=== PATIENT | male | born 1940 | race Caucasian/White ===

== ENCOUNTER 2016-09-01 15:40 | Inpatient (IN) | payer MEDICARE, OTHER ==
[~2016-09-01] VITALS: Ht 193 cm; Wt 66.7 kg
[2016-09-21] VITALS (10 sets, daily range): BP systolic 102–115; BP diastolic 60–73; PULSE 68–92; TEMP 97.6–98.5
[2016-09-21] MEDS ORDERED: LIPITOR 40MG TA40 MG PO (10:15)
[2016-09-21] MEDS ORDERED: PRINIVIL40 MG PO (10:16)
[2016-09-21] MEDS ORDERED: PERCOCET 325 MG1 TA2 PO (10:16)
[2016-09-21] MEDS ORDERED: NEXIUM 40MG40 MG PO (10:17)
[2016-09-21] MEDS ORDERED: ALKA-SELTZER GO1 TE1 PO (10:18)
[2016-09-21] MEDS ORDERED: BETAMETHASONE D15 G1 TP (10:19)
[2016-09-21] MEDS ORDERED: XANAX 0.5MG0.5 MG PO (10:19)
[2016-09-21 15:27] LABS: BASO % 0.3 % (0.0-2.0); EOS # 0.1 (0.0-0.7); EOS % 1.1 % (0-4.0); GRAN % 83.3 % (42.2-75.2); HEMATOCRIT 42.2 % (42.0-52.0); HEMOGLOBIN 13.8 g/dl (13.5-18.0); LYMPH # 1.4 (1.2-3.4); MEAN CELL VOLUME 85 fl (80.0-100.0); MEAN CORPUSCULAR HEMOGLOBIN 28 pg (27.0-31.0); MEAN CORPUSCULAR HGB CONC 33 g/dl (33.0-37.0); MONO # 0.2 (0.1-0.6); MONO % 1.9 % (1.7-9.3); PLATELET COUNT 198 K/mm3 (130-400); RED BLOOD COUNT 4.97 M/mm3 (4.20-5.60); REDCELL DISTRIBUTION WIDTH-CV 15.6 % (11.5-14.5); WHITE BLOOD COUNT 10.8 K/mm3 (4.8-10.8)
[2016-09-21 15:32] LABS: CALCIUM 10.1 mg/dL (8.4-10.2); CREATININE, serum 1.16 mg/dL (0.66-1.25); POTASSIUM 4.3 mmol/L (3.4-5.0)
[2016-09-22 02:18] VITALS: BP 103/61; PULSE 71; TEMP 98.3
[2016-09-22 05:00] VITALS: BP 108/69; PULSE 77; TEMP 98.2
[2016-09-22 07:29] LABS: BASO % 0.1 % (0.0-2.0); GRAN # 6.3 (1.4-6.5); LYMPH # 1.6 (1.2-3.4); LYMPH % 18.9 % (20.0-51.0); MEAN CELL VOLUME 84 fl (80.0-100.0); MEAN CORPUSCULAR HEMOGLOBIN 27 pg (27.0-31.0); MEAN CORPUSCULAR HGB CONC 33 g/dl (33.0-37.0); MEAN PLATELET VOLUME 10.3 fl (7.4-10.4); MONO # 0.7 (0.1-0.6); MONO % 7.6 % (1.7-9.3); PLATELET COUNT 199 K/mm3 (130-400); RED BLOOD COUNT 4.38 M/mm3 (4.20-5.60); REDCELL DISTRIBUTION WIDTH-CV 15.2 % (11.5-14.5); WHITE BLOOD COUNT 8.6 K/mm3 (4.8-10.8)
[2016-09-22 07:36] LABS: HEMATOCRIT 36.8 % (42.0-52.0)
[2016-09-22 07:50] LABS: CALCIUM 9.7 mg/dL (8.4-10.2); CREATININE, serum 1.06 mg/dL (0.66-1.25); POTASSIUM 4.9 mmol/L (3.4-5.0)
[2016-09-22 10:08] VITALS: BP 139/80; PULSE 73; TEMP 98.2
[2016-09-22 13:39] VITALS: BP 140/94; PULSE 76
[2016-09-22 17:06] VITALS: BP 116/71; PULSE 77; TEMP 98.6
[2016-09-22 22:36] VITALS: BP 123/76; PULSE 79; TEMP 98.8
[2016-09-23 06:13] VITALS: BP 118/60; PULSE 62; TEMP 87.8
[2016-09-23] MEDS ORDERED: NORCO 325 MG-51 TAB PO (09:11)
[2016-09-23] MEDS ORDERED: COLACE 100100 MG/CAP PO (09:11)
[2016-09-23 09:19] VITALS: BP 125/87; PULSE 77; TEMP 97.7
== END 2016-09-23 10:25 | disposition home or self-care (01) | DRG 656 ==
LOC: INPTSU 09-21 08:56 → SURG 09-21 11:45
PROVIDERS: Urology
PROC: 8E0W4CZ Robotic Assisted Procedure of Trunk Region, Percutaneous Endoscopic Approach (ICD-10-PCS; 2016-09-21)
PROC: 0TB14ZZ Excision of Left Kidney, Percutaneous Endoscopic Approach (ICD-10-PCS; principal; 2016-09-21 11:45)
DX: C64.2 Malignant neoplasm of left kidney, except renal pelvis (principal); E43 Unspecified severe protein-calorie malnutrition; Z68.1 Body mass index [BMI] 19.9 or less, adult; I10 Essential (primary) hypertension; F17.210 Nicotine dependence, cigarettes, uncomplicated
CPT/HCPCS: A4315; A9284; C1713; J0690; J1100; J1170; J1885; J2250; J2405; J2704; J2710; J3010; J7120